=== PATIENT | female | born 1985 | race Caucasian/White ===

== ENCOUNTER 2025-06-16 15:46 | Emergency (ER) | payer MEDICARE, OTHER, SELFPAY ==
[2025-06-16 15:53] VITALS: BP 104/68
[2025-06-16 17:33] VITALS: BMI 18.2
--- NOTE | 2025-06-16 20:10 | ED.GENMED ---
History of Present Illness
General
Chief Complaint: Anal/Rectal Problem
Time Seen by Provider: 06/16/25 19:13
History of Present Illness
History of Present Illness:
40-year-old female with history of anxiety, depression, eating disorder presenting to the emergency department for concern of rectal prolapse. Patient reports that she recently had a hospital stay at [facility] for her eating disorder. Patient
is a limited historian, emotionally upset over social issues. She notes that she is having issues with her parents, is homeless. She notes that she has been constipated and feels pain in her rectum and feels like she is having a prolapsed rectum.
Patient is hard to direct. No additional history obtained at this time
Past History
Past History
ED Past Medical History: Psychiatric (Depression, bulimia, suicide attempt by drug overdose in the past), Other and Other (Lyme disease)
ED Past Surgical History: Negative Cardiac
Social History
Tobacco: Smoker
Alcohol: Daily
Drug: None
Personal: Single
Living: with family
Employment: Not employed
Family History
Family History: Hypertension
Phy Exam
Physical Exam
Physical Exam:
General: Well-appearing, no clinical signs of dehydration, nontoxic and in no acute distress
HEENT: protecting airway
Neck: appears supple
CV: Normal heart rate
Resp: No accessory muscle use, no increased work of breathing
Abd: No distention
Extremities: No deformities, no swelling
Neuro: alert, no focal neurologic deficit
: deferred
Rectal: No rectal prolapse. Stool in the rectal vault which was subsequently removed
Psych: Normal affect
Skin: Intact
Course
Orders/Labs/Results
Orders:
Orders
06/16/25 20:08
Clonazepam [Klonopin] 0.5 mg PO NOW STA
Vital Signs
Initial and Last Documented VS:
Initial Vital Signs
Temp Pulse Resp BP Pulse Ox
98.4 F 80 16 104/68 95
06/16/25 15:53 06/16/25 15:53 06/16/25 15:53 06/16/25 15:53 06/16/25 15:53
Last Documented Vital Signs
Temp Pulse Resp BP Pulse Ox
98.4 F 80 16 104/68 95
06/16/25 15:53 06/16/25 15:53 06/16/25 15:53 06/16/25 15:53 06/16/25 20:10
MDM/Problems Addressed
MDM/Problems Addressed:
40-year-old female with history of anxiety, depression, eating disorder and homelessness presenting to the emergency department for concern of rectal prolapse. Vital signs on arrival are normal
Patient in no acute distress on arrival, however is emotional over social issues. Her main medical complaint at this time is rectal discomfort. On my examination, no rectal prolapse. No significant hemorrhoids or fluid collections. There is
stool in the rectal vault with suspicion for constipation and mild impaction. Stool was removed without issue. Without any present concern for obstruction. Patient is requesting Klonopin for anxiety. Will administer a dose. She also is
homeless, requesting to stay in the hospital. Explained that she can stay in the waiting room until social work can see her in the morning. Otherwise feel stable for discharge. Advised stool softeners. Return precautions discussed and patient
verbalized understanding
*Pulse Oximetry
SaO2: 95
Oxygen Mode of Delivery: Room air
Patient hypoxic: no
*Critical Care Note
Total Time (30-74mins, 75-104mins- exclusive of procedures): Not Applicable
ED Attending Note
-
Portions of this chart may have been created with voice recognition software.� Occasional wrong word or��sound alike� substitutions may have occurred due to the inherent limitations of voice recognition software.
Discharge Plan
Departure
Patient Disposition: Home (Routine Discharge)
Date of Disposition: 06/16/25
Time of Disposition: 20:14
Patient with high blood pressure during this ER visit?: No
Condition: Good
Discharge Problem:
Constipation
Instructions: Constipation, Adult (DC)
Prescriptions:
New
polyethylene glycol 3350 [Miralax] 17 gram/dose powder
4 g PO DAILY Qty: 119 0RF
No Action
thiamine HCl (vitamin B1) 100 MG tablet
100 mg PO DAILY Qty: 30 0RF
Referrals:
UNKNOWN - PT DOES,NOT KNOW [Family Provider]
Activity Restrictions/Additional Instructions:
You were seen in the emergency department for concern of rectal discomfort
You were found to have constipation. We recommend a stool softener.
Please follow-up closely with your primary care physician.
Return to the emergency department for any worsening of your symptoms, or any development of chest pain, difficulty breathing, abdominal pain with persistent vomiting and inability to tolerate food or liquid by mouth (concern for dehydration),
weakness, headache or confusion, fever greater than 100.4, or any additional symptoms that are concerning to you.
Thank you for choosing [facility]
Interventions
Interventions:
*Risk Screen - Suicide Last Done: 06/16/25 17:33
*General Assessment Last Done: 06/16/25 17:35
*Neglect/Abuse Screening Last Done: 06/16/25 17:33
*ED- Fall Risk Assessment Last Done: 06/16/25 17:33
*ED COVID-19 Vaccine History Last Done: 06/16/25 17:33
*ED Influenza Vaccine History Last Done: 06/16/25 17:33
ED-Skin Assessment Last Done: 06/16/25 17:59
Discharge Date and Time
Print Language: ICELANDIC
[2025-06-16] MEDS: KLONOPIN 0.5 MG PO (20:19)
[2025-06-16 20:25] VITALS: BP 91/54
== END 2025-06-16 20:42 | disposition home or self-care (01) ==
LOC: EMR 15:46
PROVIDERS: EMERGENCY PHYSICIAN Student in an Organized Health Care Education/Training Program
DX: K59.00 Constipation, unspecified (principal); F41.9 Anxiety disorder, unspecified; F32.A Depression, unspecified; Z59.00 Homelessness unspecified; F50.9 Eating disorder, unspecified; F17.200 Nicotine dependence, unspecified, uncomplicated; Z91.51 Personal history of suicidal behavior; Z91.0110 Allergy to milk products, unspecified; Z91.018 Allergy to other foods
CPT/HCPCS: 99283

== ENCOUNTER 2025-06-20 13:02 | Emergency (ER) | payer MEDICARE, OTHER, SELFPAY ==
[2025-06-20 13:07] VITALS: BP 119/90
--- NOTE | 2025-06-20 14:07 | ED.GENMED ---
History of Present Illness
General
Chief Complaint: Social Service Referral
Source: patient
Time Seen by Provider: 06/20/25 13:56
History of Present Illness
History of Present Illness:
40-year-old female presents to the emergency room by ambulance after being found acting strangely on the side of the road. Patient tells me she would like to be evaluated for a itchy rash. Patient is seen in the bathroom where she has been
'cleaning up' for the past 45 minutes. Patient has somewhat bizarre movements of her extremities appears to be under the influence of a stimulant. She admits to taking GHB Gummies and taking prescribed Adderall but denies any other illicit drugs.
Patient was seen here about 4 days ago with concerns for rectal prolapse. There was no punctal prolapse identified at that time. Patient is unsure why she has the rash but says it comes and goes and has been doing so for years. No shortness of
breath. No cough or throat swelling.
Past History
Past History
ED Past Medical History: Psychiatric (Depression, bulimia, suicide attempt by drug overdose in the past), Other and Other (Lyme disease)
ED Past Surgical History: Negative Cardiac
Social History
Tobacco: Smoker
Alcohol: Daily
Drug: None
Personal: Single
Living: with family
Employment: Not employed
Family History
Family History: Hypertension
Phy Exam
Physical Exam
Physical Exam:
General: Awake, Alert, Oriented X3. Unable to remain still, moves around the room with some bizarre leg and arm movements.
Vitals: unremarkable
Head: Atraumatic
Eyes: Pupils equal, EOMI
Throat: Airway intact, no exudates
Neck: Trachea midline
Lungs: Clear and equal b/l
Heart: Regular rate, no murmurs
Neuro: Nonfocal
Skin: Warm, dry, erythema noted about her face, neck and elbows. No urticaria.
Extremities: pulses equal b/l, no edema
Course
Orders/Labs/Results
Orders:
Orders
06/20/25 14:06
Diphenhydramine [Benadryl] 25 mg PO NOW STA
Vital Signs
Initial and Last Documented VS:
Initial Vital Signs
Temp Pulse Resp BP Pulse Ox
98.3 F 85 16 119/90 98
06/20/25 13:07 06/20/25 13:07 06/20/25 13:07 06/20/25 13:07 06/20/25 13:07
Last Documented Vital Signs
Temp Pulse Resp BP Pulse Ox
98.3 F 85 16 119/90 98
06/20/25 13:07 06/20/25 13:07 06/20/25 13:07 06/20/25 13:07 06/20/25 13:07
MDM/Problems Addressed
Differential Diagnosis Includes:
Contact dermatitis, skin irritation from 'picking 'due to methamphetamine use
MDM/Problems Addressed:
No evidence of a severe allergic reaction. Hemodynamically stable. Normal airway. Lungs are clear. Will provide a dose of Benadryl. Suspect the patient is using a stimulant such as methamphetamine that she denies. No evidence of an unstable
process. No indication for hospitalization or further testing. Offered be CARES and crisis but patient declines
*Pulse Oximetry
SaO2: 98
Oxygen Mode of Delivery: Room air
Patient hypoxic: no
*Critical Care Note
Total Time (30-74mins, 75-104mins- exclusive of procedures): Not Applicable
ED Attending Note
-
Portions of this chart may have been created with voice recognition software.� Occasional wrong word or��sound alike� substitutions may have occurred due to the inherent limitations of voice recognition software.
Discharge Plan
Departure
Patient Disposition: Home (Routine Discharge)
Date of Disposition: 06/20/25
Time of Disposition: 14:11
Patient with high blood pressure during this ER visit?: No
Condition: Good
Discharge Problem:
Pruritus, Dermatitis
Instructions: Itchy skin
Prescriptions:
No Action
thiamine HCl (vitamin B1) 100 MG tablet
100 mg PO DAILY Qty: 30 0RF
polyethylene glycol 3350 [Miralax] 17 gram/dose powder
4 g PO DAILY Qty: 119 0RF
Interventions
Interventions:
*Risk Screen - Suicide Last Done: 06/20/25 13:07
*General Assessment Last Done: 06/20/25 13:07
*Neglect/Abuse Screening Last Done: 06/20/25 13:07
*ED- Fall Risk Assessment Last Done: 06/20/25 13:07
*ED COVID-19 Vaccine History Last Done: 06/20/25 13:07
*ED Influenza Vaccine History Last Done: 06/20/25 13:07
Discharge Date and Time
Print Language: CITIZEN OF [place]
== END 2025-06-20 14:57 | disposition home or self-care (01) ==
LOC: EMR 13:02
PROVIDERS: EMERGENCY PHYSICIAN Emergency Medicine; FAMILY PHYSICIAN Family Medicine
DX: L30.9 Dermatitis, unspecified (principal); L29.9 Pruritus, unspecified; F17.200 Nicotine dependence, unspecified, uncomplicated
CPT/HCPCS: 99282

== ENCOUNTER 2025-06-21 03:31 | Emergency (ER) | payer MEDICARE, OTHER, SELFPAY ==
[2025-06-21] VITALS (7 sets, daily range): BP systolic 89–117; BP diastolic 57–83
[2025-06-21 05:01] LABS: Urine Character Clear (Clear)
[2025-06-21 05:10] LABS: Hematocrit 34.1 % (37.0-47.0); Hemoglobin 11.5 g/dL (12.0-16.0); Mean Corp Hgb Conc. 33.7 g/dL (33.0-37.0); Mean Corpuscular Volume 78.6 fL (81.0-99.0); Nucleated Red Blood Cells % 0 %; Platelet Count 436 10^3/uL (130-400); Red Cell Dist. Width 24.5 % (11.5-14.5)
[2025-06-21 05:17] LABS: HCG, Serum Qualitative Screen Negative
[2025-06-21 05:20] LABS: ALT (SGPT) 47 U/L (0-35); AST (SGOT) 92 U/L (14-36); Acetaminophen < 10 ug/ml (10-30); Albumin 4.6 g/dl (3.5-5.0); Alkaline Phosphatase 94 U/L (38-126); Blood Urea Nitrogen 13 mg/dl (7-17); Calcium 9.8 mg/dl (8.4-10.2); Carbon Dioxide 23 mmol/L (22-30); Chloride 95 mmol/L (98-107); Estimated Creatinine Clearance 76 ml/min; Glucose 86 mg/dl (70-99); Potassium 4.3 mmol/L (3.5-5.1); Salicylate < 1.0 mg/dl (2.0-20.0); Sodium 127 mmol/L (135-145); Total Protein 7.0 g/dl (6.3-8.2); eGFR > 60.00
[2025-06-21 05:35] LABS: Anisocytosis 1+; Microcytosis 1+; Normal RBC Morphology No
[2025-06-21 05:36] LABS: Ovalocytes 1+; Stomatocytes 1+
--- NOTE | 2025-06-21 06:48 | ED.GENMED ---
History of Present Illness
General
Chief Complaint: Crisis Evaluation
Source: patient
Exam Limitations: none
Time Seen by Provider: 06/21/25 03:42
Nursing documentation reviewed up to this point in time: agreed with
History of Present Illness
History of Present Illness:
Note:
CHIEF COMPLAINT(S)
Altered mental status and potential non-compliance with psychiatric medications.
HISTORY OF PRESENT ILLNESS
The patient, a 40-year-old female with a known history of bipolar disorder, was found by police in a non-functional car. There is uncertainty regarding the duration she has been in the car and concerns that her mental status is altered. The patient
was discovered to be incoherent and exhibiting signs of acute mental distress. She admitted to experiencing flashbacks and expressed feelings of being overwhelmed, stemming from familial pressures and her own business responsibilities.
The patient has a history of not taking her psychiatric medications as prescribed, which has led to previous episodes of behavioral health crises. She expressed a willingness to seek voluntary admission for mental health treatment and is open to
assistance with her current situation.
The patient articulated a sense of urgency in receiving mental health care, citing that she feels she might not manage in the [facility] without intervention. She is experiencing significant distress possibly exacerbated by her familys expectations
and past behavioral health issues.
The patients last certainty about medication compliance was unclear, and she mentioned having 30 pills but without clarity on recent adherence.
PAST MEDICAL AND SURGICAL HISTORY
Bipolar disorder with previous behavioral health crises.
CHRONIC MEDICAL CONDITIONS SIGNIFICANTLY AFFECTING CARE
Bipolar Disorder.
SOCIAL DETERMINANTS AFFECTING HEALTH
- Familial stress due to expectations and business-related responsibilities.
- History of substance abuse in family members leading to legal issues.
- The patient reported a history of pressure from her family affecting her clinical presentation.
REVIEW OF SYSTEMS
- Behavioral: Altered mental status, incoherence, flashbacks.
- Psychological: Feeling overwhelmed, urgency for mental health treatment, potential non-compliance with medication.
PHYSICAL EXAM
General: Alert, no acute distress.
Skin: Warm, dry.
Head: Normocephalic, atraumatic.
Neck: Supple, trachea midline.
Eye Ears, nose, mouth and throat: Oral mucosa moist.
Cardiovascular: Normal peripheral perfusion, No edema.
Respiratory: Respirations are non-labored.
Gastrointestinal : Abdomen nondistended
Back: Normal range of motion, Normal alignment.
Musculoskeletal: Normal ROM, normal strength.
Neurological: Alert and oriented to person, place, time, and situation, No focal neurological deficit observed.
Psychiatric: Cooperative, appropriate mood & affect.
PLAN
1. Crisis intervention team consultation to facilitate voluntary admission for mental health treatment.
2. Bloodwork to be drawn to assess overall health and medication levels.
3. Provide nourishment as requested by the patient while awaiting further evaluation.
DIFFERENTIAL DIAGNOSIS
The Differential Diagnosis includes, in no particular order and is not limited to:
1. Bipolar disorder exacerbation
2. Substance-induced mood disorder
3. Acute psychosis
4. Adjustment disorder with mood disturbance
5. Major depressive disorder with psychotic features
6. Schizoaffective disorder
7. Drug overdose
8. Alcohol withdrawal
9. Personality disorder exacerbation
10. Metabolic or endocrine disorder (such as thyroid dysfunction) influencing mood.
Disposition:
SUMMARY OF ENCOUNTER
A 40-year-old female with a known history of bipolar disorder and eating disorder presented with a manic type episode and distracted thoughts. Crisis intervention services evaluated her, and arrangements are underway for a possible voluntary
admission at [facility] for further psychiatric management.
MANAGEMENT OF THE PATIENTS CARE WAS DISCUSSED WITH
The patients case was reviewed by [facility] for a potential voluntary transfer. A psychiatry regulatory services consultant has also been involved in her care.
PLAN
1. Facilitate the transfer to [facility] for comprehensive psychiatric evaluation and treatment.
2. Continue supportive care while awaiting the transfer decision.
MEDICAL DECISION MAKING
-Complexity of Data Reviewed: Chronic conditions affecting care include bipolar disorder, history of eating disorder.
Category 3
Discussion of management with a psychiatry regulatory services consultant and [facility] for patient transfer and treatment planning.
DIAGNOSIS
Bipolar disorder, current episode manic (F31.1)
Eating disorder, unspecified (F50.9)
Past History
Past History
ED Past Medical History: Psychiatric (Depression, bulimia, suicide attempt by drug overdose in the past), Other and Other (Lyme disease)
ED Past Surgical History: Negative Cardiac
Social History
Tobacco: Smoker
Alcohol: Daily
Drug: None
Personal: Single
Living: with family
Employment: Not employed
Family History
Family History: Hypertension
Phy Exam
Physical Exam
Physical Exam:
.
Course
Orders/Labs/Results
Orders:
Orders
06/21/25 03:42
Crisis Consult Urgent
Reason for Consult: bipolar
06/21/25 03:43
Test Result ONCE
06/21/25 04:36
Acetaminophen Urgent
Alcohol Urgent
Complete Blood Count/With Diff Urgent
Comprehensive Metabolic Panel Urgent
HCG, Serum Qualitative Screen Urgent
Salicylate Urgent
06/21/25 04:42
Fentanyl, Urine Urgent
Urinalysis Reflex To Culture Urgent
Date Specimen was Collected: 06/21/25
Time Specimen was Collected: 04:38
Urine Drug Abuse Screen Urgent
Date Specimen was Collected: 06/21/25
Time Specimen was Collected: 04:38
06/21/25 06:41
Consult Notification Routine
Specialty to Notify: Psychiatry
Date consulting provider notified: 06/21/25
Time consulting provider notified: 09:12
06/21/25 10:53
Lorazepam [Ativan] 1 mg PO NOW STA
Abnormal Lab Results
06/21/25 06/21/25
04:36 04:42
Hgb 11.5 L g/dL
(12.0-16.0)
Hct 34.1 L %
(37.0-47.0)
MCV 78.6 L fL
(81.0-99.0)
MCH 26.5 L pg
(27.0-31.0)
RDW 24.5 H %
(11.5-14.5)
Plt Count 436 H 10^3/uL
(130-400)
Monocytes % 11.5 H %
(1.7-9.3)
Sodium 127 L mmol/L
(135-145)
Chloride 95 L mmol/L
(98-107)
AST 92 H U/L
(14-36)
ALT 47 H U/L
(0-35)
Salicylates < 1.0 L mg/dl
(2.0-20.0)
Acetaminophen < 10 L ug/ml
(10-30)
Ur Amphetamines Screen Positive H
(Negative)
06/21/25 04:36
06/21/25 04:36
Vital Signs
Initial and Last Documented VS:
Initial Vital Signs
BP
117/83
06/21/25 03:35
Last Documented Vital Signs
Temp Pulse Resp BP Pulse Ox
97.6 F 71 18 95/63 100
06/21/25 07:51 06/21/25 07:51 06/21/25 07:51 06/21/25 07:51 06/21/25 07:51
*Pulse Oximetry
SaO2: 100
Oxygen Mode of Delivery: Room air
Patient hypoxic: no
*Critical Care Note
Total Time (30-74mins, 75-104mins- exclusive of procedures): Not Applicable
ED Attending Note
-
Portions of this chart may have been created with voice recognition software.� Occasional wrong word or��sound alike� substitutions may have occurred due to the inherent limitations of voice recognition software.
Discharge Plan
Departure
Patient Disposition: Psych Facility
Date of Disposition: 06/21/25
Time of Disposition: 06:48
Patient Status:: 201
Condition: Good
Discharge Problem:
Manic episode
Instructions: Anxiety, Adult (DC)
Prescriptions:
No Action
thiamine HCl (vitamin B1) 100 MG tablet
100 mg PO DAILY Qty: 30 0RF
polyethylene glycol 3350 [Miralax] 17 gram/dose powder
4 g PO DAILY Qty: 119 0RF
Referrals:
Elizabeth Cline MD [Family Provider, Family Practice]
Interventions
Interventions:
*Risk Screen - Suicide Last Done: 06/21/25 03:54
*General Assessment Last Done: 06/21/25 03:51
*Neglect/Abuse Screening Last Done: 06/21/25 03:54
*ED- Fall Risk Assessment Last Done: 06/21/25 03:57
*ED COVID-19 Vaccine History Last Done: 06/21/25 03:57
*ED Influenza Vaccine History Last Done: 06/21/25 03:57
*Nursing Disposition Last Done: 06/21/25 11:15
ED-Psychological Assessment Last Done: 06/21/25 03:57
Discharge Date and Time
Discharge Date/Time: 06/21/25 11:15
Print Language: PERUVIAN
--- NOTE | 2025-06-21 07:51 | EDRN ---
Pt is nervous about transfer. Pt is scheduled to go to [facility] for in pt psychiatric care at [facility] 9:00 am.
--- NOTE | 2025-06-21 08:07 | EDRN ---
Ambulance that had been scheduled unable to take pt so crisis is working on getting another transport.
--- NOTE | 2025-06-21 10:40 | EDRN ---
Pt's family in to see pt and got her keys and are going to her car to get her a few things she requested for her to take to [facility].
--- NOTE | 2025-06-21 10:49 | EDRN ---
Dr. Paz TT'd about pt's request for anxiety medication.
[2025-06-21] MEDS: ATIVAN 1 MG PO (10:57)
--- NOTE | 2025-06-21 11:14 | EDRN ---
Father brought pt's suitcase and it went w/ pt. He kept her keys to get her car moved and fixed as it was not working. Pt left via [facility] ambulance.
== END 2025-06-21 11:15 ==
LOC: EMR 03:31
PROVIDERS: EMERGENCY PHYSICIAN Student in an Organized Health Care Education/Training Program; FAMILY PHYSICIAN Family Medicine
DX: F31.9 Bipolar disorder, unspecified (principal); Z91.148 Patient's other noncompliance with medication regimen for other reason; F17.200 Nicotine dependence, unspecified, uncomplicated; F50.9 Eating disorder, unspecified; Z81.4 Family history of other substance abuse and dependence; Z82.49 Family history of ischemic heart disease and other diseases of the circulatory system; Z91.51 Personal history of suicidal behavior
CPT/HCPCS: 99285; 80053; 80143; 80179; 80306; 80307; 81003; 82077; 84703; 85025